=== PATIENT | male | born 1950 | race Caucasian/White ===

== ENCOUNTER 2018-11-29 00:02 | Inpatient (IN) | payer MEDICARE, BC ==
[~2018-11-29] VITALS: Ht 170.2 cm; Wt 111.4 kg
[2018-11-29] VITALS (16 sets, daily range): BP systolic 123–157; BP diastolic 58–76
--- NOTE | 2018-11-29 00:05 | NUR ---
[place] [address]99 [place] 500ml - per flight crew it was running at 1000 units per hour - we don't have this concentration in our drug library so rate was checked by myself and Caroline Dunham RN and pump set to 20ml/hr
[2018-11-29] MEDS ORDERED: ASPI-1265 PO (00:44)
[2018-11-29] MEDS ORDERED: OMEG-82 PO (00:51)
[2018-11-29] MEDS ORDERED: ATOR40TA PO (00:51)
[2018-11-29] MEDS ORDERED: VITA1CAP PO (00:51)
[2018-11-29] MEDS ORDERED: VALS1TAB77 PO (00:51)
[2018-11-29] MEDS ORDERED: heparin 10,000 units/1 ML INJ IV ONE ×2 (01:00→01:15)
--- NOTE | 2018-11-29 01:23 | NUR ---
CALLED DR. FLANNERY 2ND TIME AT 01:24
[2018-11-29] MEDS: heparin 25,000 UNIT/250ml bag 250 ML IV SCH ×4 (01:26→23:06)
--- NOTE | 2018-11-29 01:47 | NUR ---
3RD ATET TO CALL DR. FLANNERY AT 01:47
[2018-11-29 01:58] LABS: BASOPHILS # (AUTO) 0.1 X10'3 (0-0.2); BASOPHILS % (AUTO) 1.2 % (0-1); EOSINOPHILS # (AUTO) 0.2 X10'3 (0-0.9); EOSINOPHILS % (AUTO) 2.8 % (0-6); HEMATOCRIT 41.4 % (42.0-52.0); HEMOGLOBIN 14.1 g/dl (14.0-17.9); LYMPHOCYTES # (AUTO) 2.5 X10'3 (1.1-4.8); LYMPHOCYTES % (AUTO) 33.2 % (21-51); MEAN CORPUSCULAR HGB CONC 34.1 g/dL (33.0-36.5); MEAN CORPUSCULAR VOLUME 93.7 FL (78-98); MEAN PLATELET VOLUME 9.4 FL (7.4-10.4); MONOCYTES % (AUTO) 13.1 % (2-12); NEUTROPHILS # (AUTO) 3.7 X10'3 (1.8-7.7); NEUTROPHILS % (AUTO) 49.7 % (42-75); PLATELET COUNT 165 X10'3 (140-440); RED BLOOD COUNT 4.42 X10'6 (4.70-6.10); RED CELL DISTRIBUTION WIDTH 13.1 % (11.5-14.5); WHITE BLOOD COUNT 7.5 X10'3 (4.5-11.0)
[2018-11-29] MEDS ORDERED: heparin 25,000 UNIT/250ml bag 250 ML IV SCH (02:08)
[2018-11-29 02:10] LABS: PARTIAL THROMBOPLASTIN TIME 36 SECONDS (22-32); PROTHROMBIN TIME 10.3 SECONDS (9.0-12.0)
[2018-11-29] MEDS ORDERED: HYDROcodone/acetaminophen 10/325mg tab PO PRN ×2 (02:10→15:35)
[2018-11-29] MEDS ORDERED: potassium Cl 40MEQ/NS 500ml 500 ML IV PRN ×2 (02:10)
[2018-11-29] MEDS ORDERED: mag hydrox/Alum hydrox/simeth 30ml oral suspension PO PRN (02:10)
[2018-11-29] MEDS ORDERED: ondansetron/PF 4mg/2ml inj IV PRN (02:10)
[2018-11-29] MEDS ORDERED: acetaminophen 325mg tablet PO PRN ×3 (02:10→15:35)
[2018-11-29] MEDS ORDERED: HYDROcodone/acetaminophen 5mg/325mg tablet PO PRN (02:10)
[2018-11-29] MEDS ORDERED: heparin 10,000 units/1 ML INJ IV PRN (02:10)
[2018-11-29] MEDS ORDERED: magnesium hydroxide 30ml (MOM) UD suspension PO PRN (02:10)
[2018-11-29] MEDS ORDERED: potassium Cl 20 mEq SR tablet PO PRN ×2 (02:10)
[2018-11-29 02:17] LABS: ALANINE AMINOTRANSFERASE 33 U/L (12-78); ALBUMIN 3.3 G/DL (3.4-5.0); ALBUMIN/GLOBULIN RATIO 0.9 (1.1-1.5); ALKALINE PHOSPHATASE 54 IU/L (46-116); ANION GAP 10 (8-16); ASPARTATE AMINO TRANSFERASE 27 U/L (10-37); BILIRUBIN,TOTAL 0.3 MG/DL (0.1-1.0); BLOOD UREA NITROGEN 24 MG/DL (7-18); BUN/CREATININE RATIO 21.1 (5.4-32.0); CALCIUM 9.2 MG/DL (8.5-10.1); CHLORIDE 107 MMOL/L (99-107); CREATININE 1.14 MG/DL (0.60-1.10); POTASSIUM 3.9 MMOL/L (3.5-5.1); SODIUM 140 MMOL/L (135-145); TOTAL CARBON DIOXIDE 22.8 MMOL/L (24-32); TOTAL PROTEIN 6.8 G/DL (6.4-8.2); eGFR 64 ML/MIN
[2018-11-29 02:18] LABS: GLUCOSE 138 MG/DL (70-104)
--- NOTE | 2018-11-29 02:24 | NUR ---
pt ambulatory to restroom and back to bed. pt remains pain free without complaint. will continue to monitor. MD Ma, hospitalist aware of troponin
[2018-11-29] MEDS: normal saline 1000ml 1,000 ML IV SCH ×3 (02:26→17:30)
--- NOTE | 2018-11-29 06:35 | NUR ---
Patient in room PCU 3021A. I have received report from MILDRED GUERRA/SCOTT and had the opportunity to ask questions and assume patient care.
[2018-11-29 06:59] LABS: CHOL/HDL RATIO 4.4 (0.00-4.99); CHOLESTEROL 161 MG/DL (0-200); HDL CHOLESTEROL 37 MG/DL (35-60); LDL CHOLESTEROL 80 MG/DL (50-100); TRIGLYCERIDES 428 MG/DL (20-135)
[2018-11-29] MEDS: HYDROchlorothiazide 25mg tablet PO SCH (07:53)
[2018-11-29] MEDS: aspirin 81mg tablet.DR PO SCH (07:53)
[2018-11-29] MEDS: losartan 50mg tablet PO SCH (07:54)
[2018-11-29] MEDS: K and/or MAG REPLACEMENT MC SCH (07:57)
[2018-11-29] MEDS ORDERED: non-formulary drug (Valsartan/Hydrochlorothiazide (Valsartan-Hctz 160-25 Mg Tab) 1 TAB) PO SCH (08:00)
[2018-11-29] MEDS ORDERED: atorvastatin 20mg tablet PO SCH (08:00)
--- NOTE | 2018-11-29 09:12 | NUR ---
Took call from Lab for critical troponin 2.60, made Eleonora LEVY "O" to Mckenzie LEVY aware of result at this time.
--- NOTE | 2018-11-29 09:19 | NUR ---
PAGER ID: [phone] MESSAGE: [id number] pt. Lolita MERCADO Tropnin level 3.66- 3.22- and now is 2.60, thank you Eleonora [phone]
[2018-11-29] MEDS: heparin 10,000 units/1 ML INJ IV PRN ×2 (12:17→21:10)
[2018-11-29] MEDS ORDERED: fentaNYL/PF 50MCG/1 ML 2ML syringe ONE (13:35)
[2018-11-29] MEDS ORDERED: LIDOcaine 1% (10mg/ml)w/preservative injection 20ml MDV ONE (13:35)
[2018-11-29] MEDS ORDERED: iohexol 350MG/ML 100ml bottle IV ONE (13:35)
[2018-11-29] MEDS ORDERED: midazolam 2 mg/2 ml injection ONE ×2 (13:35→14:03)
[2018-11-29] MEDS ORDERED: iohexol 350 MG/ML 50ML vial IV ONE (13:35)
--- NOTE | 2018-11-29 14:00 | NUR ---
[place] documentation: I have reviewed and agree with interventions, assessments performed and documented by MILDRED Crews. [place] Medication Administration: For this medication-pass time frame, medication were reviewed, dispensed, administered and documented per hospital policy by MILDRED Crews.
[2018-11-29] MEDS ORDERED: diphenhydrAMINE 50 mg/ml inj ONE (14:03)
[2018-11-29] MEDS ORDERED: LORazepam 1 MG tablet PO PRN (15:05)
[2018-11-29] MEDS ORDERED: haloperidol 5mg tablet PO PRN (15:05)
[2018-11-29] MEDS ORDERED: haloperidol lactate 5mg/ml inj IM PRN (15:05)
[2018-11-29] MEDS ORDERED: LORazepam 2 mg/ml vial IV PRN (15:05)
--- NOTE | 2018-11-29 15:24 | NUR ---
Ultrasound, Vascular, and RT paged for preop cabg orders
[2018-11-29] MEDS ORDERED: nitroGLYCERIN 0.4mg SUBLingual tab SL PRN (15:30)
[2018-11-29] MEDS ORDERED: aspirin 81mg tab.chew PO ONE (15:30)
[2018-11-29] MEDS ORDERED: proCHLORperazine 10 MG/2 ml inj IV PRN (15:35)
--- NOTE | 2018-11-29 16:41 | NUR ---
Rt reports that they are unable to get PFT because they do not know how to calibrate the machine
[2018-11-29 17:10] LABS: ABG BASE EXCESS -2.3 mmol/L (-2.0-3.0); ABG HCO3 21.2 mmol/L (22.0-26.0); ABG PCO2 (T) 33.2 mmHg (35.0-48.0); ABG PH (T) 7.424 (7.350-7.450); ABG PO2 (T) 82.9 mmHg (83-108); FCOHb 0.3 % (0.5-1.5); FMetHb 0.2 % (0.3-1.12); FO2Hb 95.5 % (94-100); TOTAL HEMOGLOBIN 14.5 G/dl (14.0-18.0)
--- NOTE | 2018-11-29 18:20 | NUR ---
Patient in room CICU 2006. I have received report from Charles LEVY and had the opportunity to ask questions and assume patient care. Patient resting in bed eating dinner with daughter's help. BP in 150s systolically via femoral sheath, HR in low 60s in sinus rhythm. Will continue to monitor patient.
[2018-11-29] MEDS: docusate sod 100mg capsule PO SCH (19:45)
[2018-11-29] MEDS: metoprolol tartrate 25mg tablet PO SCH (19:45)
[2018-11-29] MEDS: HYDROcodone/acetaminophen 10/325mg tab PO PRN (19:45)
[2018-11-29] MEDS: OXAZEpam 15mg capsule PO PRN (19:45)
--- NOTE | 2018-11-29 19:55 | NUR ---
FC inserted, patient reporting leakage around catheter. Noted urine on sheets underneath him. Checked meatus, FC not leaking anymore. Sheets cleaned, armando area cleaned. Will continue to monitor.
[2018-11-29] MEDS: magnesium hydroxide 30ml (MOM) UD suspension PO SCH (20:47)
[2018-11-29] MEDS ORDERED: temazepam 15mg capsule PO PRN (21:00)
[2018-11-30] VITALS (24 sets, daily range): BP systolic 124–156; BP diastolic 57–79
--- NOTE | 2018-11-30 | NUR ---
No changes in patient condition. Will continue to monitor.
[2018-11-30] MEDS: normal saline 1000ml 1,000 ML IV SCH (01:08)
--- NOTE | 2018-11-30 04:00 | NUR ---
No changes in patient condition. Patient requesting pain medication for back pain. Will administer per MD orders.
[2018-11-30 04:06] LABS: BASOPHILS # (AUTO) 0.1 X10'3 (0-0.2); BASOPHILS % (AUTO) 0.7 % (0-1); EOSINOPHILS # (AUTO) 0.2 X10'3 (0-0.9); HEMOGLOBIN 13.5 g/dl (14.0-17.9); LYMPHOCYTES # (AUTO) 2.2 X10'3 (1.1-4.8); LYMPHOCYTES % (AUTO) 27.5 % (21-51); MEAN CORPUSCULAR HEMOGLOBIN 31.8 PG (27.0-31.0); MEAN CORPUSCULAR HGB CONC 33.7 g/dL (33.0-36.5); MEAN CORPUSCULAR VOLUME 94.3 FL (78-98); MEAN PLATELET VOLUME 10.1 FL (7.4-10.4); NEUTROPHILS # (AUTO) 4.5 X10'3 (1.8-7.7); NEUTROPHILS % (AUTO) 56.8 % (42-75); PLATELET COUNT 146 X10'3 (140-440); RED BLOOD COUNT 4.25 X10'6 (4.70-6.10); RED CELL DISTRIBUTION WIDTH 13.2 % (11.5-14.5); WHITE BLOOD COUNT 7.9 X10'3 (4.5-11.0)
[2018-11-30 04:17] LABS: ALANINE AMINOTRANSFERASE 28 U/L (12-78); ALBUMIN 3.1 G/DL (3.4-5.0); ALBUMIN/GLOBULIN RATIO 0.9 (1.1-1.5); ALKALINE PHOSPHATASE 48 IU/L (46-116); AMYLASE 34 U/L (25-115); ANION GAP 10 (8-16); ASPARTATE AMINO TRANSFERASE 19 U/L (10-37); BILIRUBIN,TOTAL 0.4 MG/DL (0.1-1.0); BLOOD UREA NITROGEN 14 MG/DL (7-18); BUN/CREATININE RATIO 15.4 (5.4-32.0); CALCIUM 8.5 MG/DL (8.5-10.1); CHLORIDE 105 MMOL/L (99-107); CREATININE 0.91 MG/DL (0.60-1.10); GLUCOSE 120 MG/DL (70-104); LIPASE 140 U/L (73-393); MAGNESIUM 1.9 MG/DL (1.5-2.4); PHOSPHORUS 4.1 MG/DL (2.3-4.5); POTASSIUM 3.6 MMOL/L (3.5-5.1); SODIUM 138 MMOL/L (135-145); TOTAL CARBON DIOXIDE 22.6 MMOL/L (24-32); TOTAL PROTEIN 6.6 G/DL (6.4-8.2); eGFR 83 ML/MIN
[2018-11-30] MEDS: HYDROcodone/acetaminophen 10/325mg tab PO PRN ×3 (04:36→14:34)
--- NOTE | 2018-11-30 06:23 | NUR ---
Problems reprioritized. Patient report given, questions answered & plan of care reviewed with Nayeli LEVY.
--- NOTE | 2018-11-30 06:26 | NUR ---
Patient in room CICU 2006. I have received report from Anselmo and had the opportunity to ask questions and assume patient care.
[2018-11-30] MEDS: K and/or MAG REPLACEMENT MC SCH (06:27)
[2018-11-30] MEDS: metoprolol tartrate 25mg tablet PO SCH (07:14)
[2018-11-30] MEDS: losartan 50mg tablet PO SCH (07:14)
[2018-11-30] MEDS: folic acid inj. 2 MG, thiamine inj. 100 MG, MVI, adult No.4 with vit. K 10 ML in dextro... IV SCH ×4 (07:14)
[2018-11-30] MEDS: HYDROchlorothiazide 25mg tablet PO SCH (07:14)
[2018-11-30] MEDS: docusate sod 100mg capsule PO SCH ×2 (07:14→19:47)
[2018-11-30] MEDS: aspirin 81mg tablet.DR PO SCH (07:15)
[2018-11-30 07:56] LABS: HEMOGLOBIN A1C 6.4 % (4.5-6.2)
[2018-11-30] MEDS ORDERED: atorvastatin 20mg tablet PO SCH (08:00)
[2018-11-30] MEDS: OXAZEpam 15mg capsule PO PRN ×2 (09:06→16:32)
[2018-11-30] MEDS ORDERED: ringers solution, lacted 1,000 ML IV ONE (09:16)
[2018-11-30 11:12] LABS: PROTHROMBIN TIME 10.2 SECONDS (9.0-12.0)
[2018-11-30] MEDS: heparin 10,000 units/1 ML INJ IV PRN ×2 (11:24→17:09)
[2018-11-30] MEDS: heparin 25,000 UNIT/250ml bag 250 ML IV SCH ×3 (11:26→17:11)
[2018-11-30] MEDS ORDERED: insulin regular, human 100 UNIT in normal saline 100ml IV soln 100 ML IV SCH ×2 (11:47)
[2018-11-30] MEDS ORDERED: insulin glargine (Lantus) pen - multi-dose SQ PRN (11:50)
[2018-11-30] MEDS ORDERED: gabapentin 400mg capsule PO ONE (11:50)
[2018-11-30] MEDS ORDERED: dextrose 50%-water 50ml dispensing syringe IV PRN (11:50)
[2018-11-30] MEDS ORDERED: cefazolin/dext.iso 2gm/50ml 50 ML IV ONE (11:50)
[2018-11-30] MEDS ORDERED: vancomycin/NS 1 GM ADD-VANTAGE 250 ML IV ONE (11:50)
[2018-11-30] MEDS ORDERED: NUT.TX.IMPAIRED DIGEST FXN (Ensure Clear) 237 ML PO ONE (11:50)
[2018-11-30] MEDS ORDERED: MESSAGE TO NURSING PO ONE ×4 (11:50)
[2018-11-30] MEDS ORDERED: ceFAZolin 2gm in dextrose, iso 100 ML IV ONE (11:55)
--- NOTE | 2018-11-30 12:30 | NUR ---
Ensure clear received from dietary, placed at bedside for tomorrow pre CABG.
--- NOTE | 2018-11-30 13:52 | NUR ---
Spoke to RT Lara who stated ABG's were done yesterday and do not need to be repeated.
[2018-11-30 14:01] LABS: CLARITY,URINE CLEAR (Clear); COLOR,URINE YELLOW (Yellow); GLUCOSE, URINE NEGATIVE (Neg); KETONES,URINE NEGATIVE (Neg); LEUKOCYTE ESTERASE ,URINE NEGATIVE (Neg); NITRITES, URINE NEGATIVE (Neg); OCCULT BLOOD,URINE LARGE (Neg); PROTEIN,URINE NEGATIVE (Neg); UROBILINOGEN,URINE 0.2 E.U/dL (0.2-1.0)
[2018-11-30 14:06] LABS: UA COLLECTION TYPE FOLEY CATH
[2018-11-30 14:08] LABS: BACTERIA,URINE NONE SEEN /HPF (Neg); MUCUS STRANDS NONE SEEN /LPF (Neg); SQUAMOUS EPITHELIAL CELL,UR NONE SEEN /LPF (FEW); WBC,URINE NONE SEEN /HPF (0-4)
--- NOTE | 2018-11-30 14:14 | NUR ---
DM consult: A1C <7 and not appropriate for DM ed at this time. Pt receiving beer w/ meals per MD order. Addendum: 11/30/18 at [address] Amended: Links added.
--- NOTE | 2018-11-30 18:15 | NUR ---
Patient in room CICU 2006. I have received report from MILDRED Patel and had the opportunity to ask questions and assume patient care with preceptor Aileen Silveira RN. Patient is awake and alert at time of report, patients daughter is at bedside. Patient with 18 ga PIV to left AC with heparin infusing at 1700 u/hr and Normal saline at 75 ml/hr. 18 ga PIV to right AC saline locked at this time. Patient educated on needing to keep his right leg straight. Patient with arterial sheath in place to right groin. No hematoma or bruising noted to site. Patient needs reminders to keep his leg straight. Right foot cool to touch, good capillary refill. Warm blanket placed on right foot. Will continue to monitor.
--- NOTE | 2018-11-30 18:19 | NUR ---
Problems reprioritized. Patient report given, questions answered & plan of care reviewed with Ronit.
[2018-11-30] MEDS: cyclobenzaprine 10mg tablet PO PRN (19:47)
[2018-11-30] MEDS ORDERED: mupirocin 2% nasal ointment 1gm UD NS SCH (20:00)
[2018-11-30] MEDS ORDERED: metoprolol tartrate 12.5mg (1/2 tablet) PO SCH (20:00)
--- NOTE | 2018-11-30 21:30 | NUR ---
Patient educated on Pre and Post op procedures, what to expect when he comes out of surgery. Heart pillow given to patient and shown how to use it. Discussed deep breathing and cough with patient and incentive spirometer. 1 st bed bath and linen change complete. Patient reminded to not move his right leg or attempt to help us while turning him, frequent reminders necessary.
[2018-11-30] MEDS: magnesium hydroxide 30ml (MOM) UD suspension PO SCH (21:55)
[2018-12-01] VITALS (24 sets, daily range): BP systolic 85–143; BP diastolic 35–73
--- NOTE | 2018-12-01 00:04 | NUR ---
Patient appears to be sleeping at this time.
[2018-12-01 03:28] LABS: BASOPHILS % (AUTO) 0.5 % (0-1); EOSINOPHILS # (AUTO) 0.3 X10'3 (0-0.9); HEMOGLOBIN 13.6 g/dl (14.0-17.9); LYMPHOCYTES # (AUTO) 2.2 X10'3 (1.1-4.8); LYMPHOCYTES % (AUTO) 26.8 % (21-51); MEAN CORPUSCULAR HEMOGLOBIN 31.9 PG (27.0-31.0); MEAN CORPUSCULAR HGB CONC 34.1 g/dL (33.0-36.5); MEAN CORPUSCULAR VOLUME 93.4 FL (78-98); MEAN PLATELET VOLUME 9.7 FL (7.4-10.4); MONOCYTES % (AUTO) 12.7 % (2-12); NEUTROPHILS # (AUTO) 4.7 X10'3 (1.8-7.7); PLATELET COUNT 148 X10'3 (140-440); PROTHROMBIN TIME 10.3 SECONDS (9.0-12.0); RED BLOOD COUNT 4.28 X10'6 (4.70-6.10); RED CELL DISTRIBUTION WIDTH 13.2 % (11.5-14.5); WHITE BLOOD COUNT 8.3 X10'3 (4.5-11.0)
[2018-12-01 03:30] LABS: ALANINE AMINOTRANSFERASE 28 U/L (12-78); ALBUMIN 3.1 G/DL (3.4-5.0); ALBUMIN/GLOBULIN RATIO 0.9 (1.1-1.5); ALKALINE PHOSPHATASE 51 IU/L (46-116); AMYLASE 33 U/L (25-115); ANION GAP 11 (8-16); ASPARTATE AMINO TRANSFERASE 18 U/L (10-37); BILIRUBIN,TOTAL 0.4 MG/DL (0.1-1.0); BLOOD UREA NITROGEN 10 MG/DL (7-18); BUN/CREATININE RATIO 10.8 (5.4-32.0); CALCIUM 8.4 MG/DL (8.5-10.1); CHLORIDE 104 MMOL/L (99-107); CREATININE 0.93 MG/DL (0.60-1.10); GLUCOSE 112 MG/DL (70-104); LIPASE 91 U/L (73-393); PHOSPHORUS 4.1 MG/DL (2.3-4.5); POTASSIUM 3.7 MMOL/L (3.5-5.1); SODIUM 139 MMOL/L (135-145); TOTAL CARBON DIOXIDE 24.2 MMOL/L (24-32); TOTAL PROTEIN 6.6 G/DL (6.4-8.2); eGFR 81 ML/MIN
[2018-12-01] MEDS ORDERED: gabapentin 400mg capsule PO ONE (05:00)
[2018-12-01] MEDS ORDERED: ceFAZolin 1000mg inj ONE (05:14)
[2018-12-01] MEDS ORDERED: ROPIVAcaine 0.5% (5mg/ml) 30ml vial ONE (05:14)
[2018-12-01] MEDS: mupirocin 2% nasal ointment 1gm UD NS SCH ×4 (05:26→20:01)
[2018-12-01] MEDS ORDERED: vancomycin/NS 1 GM ADD-VANTAGE 250 ML IV ONE (05:30)
[2018-12-01] MEDS ORDERED: ceFAZolin 2gm in dextrose, iso 100 ML IV ONE (05:30)
[2018-12-01] MEDS ORDERED: insulin regular, human 100 UNIT in normal saline 100ml IV soln 100 ML IV SCH ×2 (05:30)
[2018-12-01] MEDS ORDERED: NUT.TX.IMPAIRED DIGEST FXN (Ensure Clear) 237 ML PO ONE (05:30)
[2018-12-01] MEDS ORDERED: LORazepam 2 mg/ml vial IV ONE (06:00)
[2018-12-01] MEDS ORDERED: famotidine 20mg tablet PO ONE (06:00)
--- NOTE | 2018-12-01 06:22 | NUR ---
Problems reprioritized. Patient report given, questions answered & plan of care reviewed with MILDRED Waller.
[2018-12-01] MEDS ORDERED: aminocaproic acid 250 MG/1 ML inj. ONE ×2 (06:55)
[2018-12-01] MEDS ORDERED: calcium chloride 100 MG/1 ML inj IV ONE (06:55)
[2018-12-01] MEDS ORDERED: sodium bicarbonate (8.4%) 1 mEq/ml syringe ONE (06:55)
[2018-12-01] MEDS ORDERED: papaverine 30 mg/ml 2ml inj. ONE (06:55)
[2018-12-01] MEDS ORDERED: DOPamine/D5W 400mg/250ml bag IV ONE (06:55)
[2018-12-01] MEDS ORDERED: protamine sulf. 10mg/ml inj. IV ONE (06:55)
[2018-12-01] MEDS ORDERED: albumin (human) 25% 100 ML IV solution IV ONE (06:55)
[2018-12-01] MEDS ORDERED: LIDOcaine 2% (20 mg/ml) 5ml cardiac syringe ONE (06:55)
[2018-12-01] MEDS ORDERED: phenylephrine 10mg/ml inj. ONE ×2 (06:55→08:26)
[2018-12-01] MEDS ORDERED: heparin 1,000 units/ml 10ml inj ONE (06:55)
[2018-12-01] MEDS ORDERED: heparin 10,000 units/1 ML INJ ONE (06:55)
[2018-12-01] MEDS ORDERED: sevoflurane 250ml liquid IH ONE (06:55)
[2018-12-01] MEDS ORDERED: SUFENTANIL CITRATE 50 MCG/ML 2ml ampule IV ONE (06:59)
[2018-12-01] MEDS ORDERED: MIDAZolam 1mg/ml 10ml vial ONE (06:59)
[2018-12-01] MEDS ORDERED: LIDOcaine 2% (20mg/ml) 5ml vial ONE (07:00)
[2018-12-01] MEDS ORDERED: propofol inj 20 ML IV ONE (07:00)
[2018-12-01] MEDS ORDERED: pancuronium br 1mg/ml inj IV ONE (07:00)
[2018-12-01 07:45] LABS: ABG BASE EXCESS -1.1 mmol/L (-2.0-3.0); ABG HCO3 24.5 mmol/L (22.0-26.0); ABG OXYGEN SATURATION 99.5 % (95-98); ABG PCO2 44.2 mmHg (35.0-45.0); ABG PH 7.361 (7.350-7.450); ABG PO2 291.3 mmHg (60.0-100.0); CL (ABG) 103 mmol/L (99-107); FCOHb 0.7 % (0.5-1.5); FMetHb 0.4 % (0.3-1.12); FO2Hb 98.4 % (94-100); GLUCOSE (ABG) 195 mg/dl (70-105); IONIZED CA (ABG) 1.12 mmol/L (1.03-1.32); K (ABG) 3.7 mmol/L (3.3-5.1); NA (ABG) 131 mmol/L (135-145); TOTAL HEMOGLOBIN 13.7 G/dl (14.0-18.0)
[2018-12-01] MEDS ORDERED: heparin 10,000 units/1 ML INJ IR ONE (07:59)
[2018-12-01] MEDS: docusate sod 100mg capsule PO SCH ×2 (08:00→19:54)
[2018-12-01] MEDS: HYDROchlorothiazide 25mg tablet PO SCH (08:00)
[2018-12-01] MEDS: K and/or MAG REPLACEMENT MC SCH (08:00)
[2018-12-01] MEDS: metoprolol tartrate 12.5mg (1/2 tablet) PO SCH ×2 (08:00→19:55)
[2018-12-01] MEDS: losartan 50mg tablet PO SCH (08:00)
[2018-12-01] MEDS ORDERED: papaverine 30 mg/ml 2ml inj. IA ONE (08:02)
[2018-12-01 08:20] LABS: ABG BASE EXCESS VENOUS -4.5 mmol/L; ABG HCO3 VENOUS 22.8 mmol/L; ABG PCO2 VENOUS 51.2 mmHg; ABG PO2 VENOUS 50.5 mmHg; CL (ABG) 101 mmol/L (99-107); FHHb VENOUS 20.9 %; FMetHb VENOUS 0.4 %; FO2Hb VENOUS 77.7 %; GLUCOSE (ABG) 149 mg/dl (70-105); IONIZED CA (ABG) 1.15 mmol/L (1.03-1.32); K (ABG) 3.9 mmol/L (3.3-5.1); NA (ABG) 131 mmol/L (135-145)
[2018-12-01 08:55] LABS: ABG BASE EXCESS 0.3 mmol/L (-2.0-3.0); ABG HCO3 25.6 mmol/L (22.0-26.0); ABG OXYGEN SATURATION 99.3 % (95-98); ABG PCO2 44.6 mmHg (35.0-45.0); ABG PH 7.377 (7.350-7.450); ABG PO2 220.2 mmHg (60.0-100.0); CL (ABG) 100 mmol/L (99-107); FCOHb 0.4 % (0.5-1.5); FMetHb 0.2 % (0.3-1.12); FO2Hb 98.7 % (94-100); GLUCOSE (ABG) 122 mg/dl (70-105); IONIZED CA (ABG) 0.94 mmol/L (1.03-1.32); K (ABG) 3.8 mmol/L (3.3-5.1); NA (ABG) 129 mmol/L (135-145); TOTAL HEMOGLOBIN 10.1 G/dl (14.0-18.0)
[2018-12-01 09:20] LABS: ABG BASE EXCESS -0.2 mmol/L (-2.0-3.0); ABG HCO3 26.5 mmol/L (22.0-26.0); ABG OXYGEN SATURATION 98.2 % (95-98); ABG PCO2 52.2 mmHg (35.0-45.0); ABG PH 7.323 (7.350-7.450); ABG PO2 133.3 mmHg (60.0-100.0); CL (ABG) 103 mmol/L (99-107); FCOHb 0.4 % (0.5-1.5); FMetHb 0.6 % (0.3-1.12); FO2Hb 97.2 % (94-100); GLUCOSE (ABG) 125 mg/dl (70-105); IONIZED CA (ABG) 1.03 mmol/L (1.03-1.32); K (ABG) 4.2 mmol/L (3.3-5.1); NA (ABG) 130 mmol/L (135-145); TOTAL HEMOGLOBIN 11.6 G/dl (14.0-18.0)
[2018-12-01 09:40] LABS: ABG BASE EXCESS -0.6 mmol/L (-2.0-3.0); ABG HCO3 25.7 mmol/L (22.0-26.0); ABG OXYGEN SATURATION 99.3 % (95-98); ABG PCO2 49.1 mmHg (35.0-45.0); ABG PH 7.336 (7.350-7.450); ABG PO2 368.7 mmHg (60.0-100.0); CL (ABG) 102 mmol/L (99-107); FCOHb 0.4 % (0.5-1.5); FMetHb 0.7 % (0.3-1.12); FO2Hb 98.2 % (94-100); GLUCOSE (ABG) 124 mg/dl (70-105); IONIZED CA (ABG) 1.03 mmol/L (1.03-1.32); NA (ABG) 130 mmol/L (135-145); TOTAL HEMOGLOBIN 11.7 G/dl (14.0-18.0)
[2018-12-01 10:00] LABS: ABG BASE EXCESS 0.3 mmol/L (-2.0-3.0); ABG HCO3 25.9 mmol/L (22.0-26.0); ABG OXYGEN SATURATION 99.3 % (95-98); ABG PCO2 46.1 mmHg (35.0-45.0); ABG PH 7.368 (7.350-7.450); ABG PO2 391.1 mmHg (60.0-100.0); CL (ABG) 103 mmol/L (99-107); FCOHb 0.3 % (0.5-1.5); FMetHb 0.6 % (0.3-1.12); FO2Hb 98.4 % (94-100); GLUCOSE (ABG) 122 mg/dl (70-105); IONIZED CA (ABG) 0.99 mmol/L (1.03-1.32); NA (ABG) 131 mmol/L (135-145)
[2018-12-01] MEDS ORDERED: MESSAGE TO NURSING PO ONE (10:00)
[2018-12-01] MEDS: sodium chloride 0.45% 1,000 ML IV SCH (10:36)
[2018-12-01] MEDS ORDERED: nitroGLYCERIN-Tridil 50MG/D5W 250 ML IV PRN (10:36)
[2018-12-01] MEDS ORDERED: niCARDipine-NS 40mg/200ml IVPB 200 ML IV PRN (10:36)
[2018-12-01] MEDS ORDERED: nitroGLYCERIN-Tridil 50MG/D5W 250 ML IV SCH (10:36)
[2018-12-01] MEDS ORDERED: Neutra Phos packet PO PRN (10:40)
[2018-12-01] MEDS ORDERED: ondansetron/PF 4mg/2ml inj IV PRN (10:40)
[2018-12-01] MEDS ORDERED: sodium phosphate inj. 15 MMOL in dextrose 5%-water 150 ML IV PRN (10:40)
[2018-12-01] MEDS ORDERED: dextrose 50%-water 50ml dispensing syringe IV PRN (10:40)
[2018-12-01] MEDS ORDERED: magnesium 2GM in 50ml NS 50 ML IV PRN (10:40)
[2018-12-01] MEDS ORDERED: magnesium 4gm in 100ml NS 100 ML IV PRN (10:40)
[2018-12-01] MEDS ORDERED: insulin regular, human inj. 100 UNITS in normal saline 100ml IV soln 100 ML IV SCH ×2 (10:40)
[2018-12-01] MEDS ORDERED: sodium phosphate inj. 30 MMOL in dextrose 5%-water 250 ML IV PRN (10:40)
[2018-12-01] MEDS ORDERED: acetaminophen 325mg tablet PO PRN (10:40)
[2018-12-01] MEDS ORDERED: HYDROcodone/acetaminophen 10/325mg tab PO PRN (10:40)
[2018-12-01] MEDS ORDERED: morphine 4 MG/ML inj SYRINge IV PRN (10:40)
[2018-12-01] MEDS ORDERED: pantoprazole 40 MG vial IV ONE (10:40)
[2018-12-01] MEDS ORDERED: magnesium hydroxide 30ml (MOM) UD suspension PO PRN (10:40)
[2018-12-01] MEDS ORDERED: metoclopramide 5 mg/ml inj IV PRN (10:40)
[2018-12-01] MEDS ORDERED: potassium Cl 20 mEq SR tablet PO PRN (10:40)
[2018-12-01 10:41] LABS: ABG BASE EXCESS VENOUS -0.8 mmol/L; ABG HCO3 VENOUS 24.2 mmol/L; ABG PCO2 VENOUS 41.1 mmHg; ABG PO2 VENOUS 41.4 mmHg; CL (ABG) 106 mmol/L (99-107); FCOHb VENOUS 0.8 %; FHHb VENOUS 22.9 %; FMetHb VENOUS 0.6 %; FO2Hb VENOUS 75.7 %; GLUCOSE (ABG) 109 mg/dl (70-105); IONIZED CA (ABG) 1.02 mmol/L (1.03-1.32); K (ABG) 3.7 mmol/L (3.3-5.1); NA (ABG) 133 mmol/L (135-145); TOTAL HEMOGLOBIN 12.5 G/dl (14.0-18.0)
[2018-12-01 10:51] LABS: ACT @ 1.70 U 289 SEC (193-297); ACT @ 2.84 U 394 SEC (260-420); BASELINE ACT 149 SEC (101-148)
[2018-12-01 10:51] LABS: ACTIVATED CLOTTING TIME 131 SEC (101-148)
[2018-12-01] MEDS ORDERED: albumin (Human) 5% 250ml 250 ML IV ONE ×2 (10:55)
[2018-12-01 11:30] LABS: ABG BASE EXCESS -2.6 mmol/L (-2.0-3.0); ABG HCO3 22.2 mmol/L (22.0-26.0); ABG OXYGEN SATURATION 93.7 % (95-98); ABG PCO2 (T) 37.5 mmHg (35.0-48.0); ABG PH (T) 7.388 (7.350-7.450); ABG PO2 (T) 71.5 mmHg (83-108); FCOHb 0.3 % (0.5-1.5); FMetHb 0.2 % (0.3-1.12); FO2Hb 93.2 % (94-100); MINUTE VOLUME 9 L/min; PATIENT TEMPERATURE 36.2; PEEP 5 cm H2O; RESPIRATORY RATE 14 b/min; RESPIRATORY RATE (OBSERVED) 14 b/min; TIDAL VOLUME 600 mL; TOTAL HEMOGLOBIN 11.5 G/dl (14.0-18.0)
[2018-12-01] MEDS: albumin (Human) 5% 250ml 250 ML IV PRN ×4 (11:36→22:30)
[2018-12-01 11:40] LABS: INR 1.2 INR; PARTIAL THROMBOPLASTIN TIME 33 SECONDS (22-32); PROTHROMBIN TIME 11.9 SECONDS (9.0-12.0)
[2018-12-01 11:43] LABS: ALANINE AMINOTRANSFERASE 22 U/L (12-78); ALBUMIN 2.8 G/DL (3.4-5.0); ALBUMIN/GLOBULIN RATIO 1.3 (1.1-1.5); ALKALINE PHOSPHATASE 34 IU/L (46-116); ANION GAP 7 (8-16); ASPARTATE AMINO TRANSFERASE 25 U/L (10-37); BILIRUBIN,TOTAL 0.4 MG/DL (0.1-1.0); BLOOD UREA NITROGEN 9 MG/DL (7-18); BUN/CREATININE RATIO 8.9 (5.4-32.0); CALCIUM 7.3 MG/DL (8.5-10.1); CHLORIDE 107 MMOL/L (99-107); CREATININE 1.01 MG/DL (0.60-1.10); GLUCOSE 133 MG/DL (70-104); MAGNESIUM 1.9 MG/DL (1.5-2.4); PHOSPHORUS 3.7 MG/DL (2.3-4.5); POTASSIUM 3.8 MMOL/L (3.5-5.1); SODIUM 140 MMOL/L (135-145); TOTAL CARBON DIOXIDE 25.8 MMOL/L (24-32); eGFR 73 ML/MIN
[2018-12-01] MEDS: morphine 4 MG/ML inj SYRINge IV PRN ×2 (12:10→13:12)
[2018-12-01 12:14] LABS: BASOPHILS # (AUTO) 0.1 X10'3 (0-0.2); BASOPHILS % (AUTO) 0.6 % (0-1); EOSINOPHILS # (AUTO) 0.2 X10'3 (0-0.9); EOSINOPHILS % (AUTO) 1.4 % (0-6); HEMATOCRIT 34.8 % (42.0-52.0); HEMOGLOBIN 11.5 g/dl (14.0-17.9); LYMPHOCYTES # (AUTO) 2.1 X10'3 (1.1-4.8); LYMPHOCYTES % (AUTO) 18.1 % (21-51); MEAN CORPUSCULAR HEMOGLOBIN 31.7 PG (27.0-31.0); MEAN CORPUSCULAR VOLUME 95.9 FL (78-98); MEAN PLATELET VOLUME 9.6 FL (7.4-10.4); MONOCYTES # (AUTO) 1.1 X10'3 (0-0.9); MONOCYTES % (AUTO) 9.7 % (2-12); NEUTROPHILS # (AUTO) 8.3 X10'3 (1.8-7.7); NEUTROPHILS % (AUTO) 70.2 % (42-75); PLATELET COUNT 94 X10'3 (140-440); RED BLOOD COUNT 3.63 X10'6 (4.70-6.10); RED CELL DISTRIBUTION WIDTH 13.3 % (11.5-14.5); WHITE BLOOD COUNT 11.8 X10'3 (4.5-11.0)
[2018-12-01] MEDS ORDERED: NORepinephrine 8mg/ 250ml NS 250 ML IV ONE (12:29)
[2018-12-01] MEDS: gabapentin 300mg capsule PO SCH ×2 (12:31→21:16)
[2018-12-01] MEDS: potassium Cl 20mEq/100mL bag 100 ML IV PRN ×4 (12:31→22:25)
[2018-12-01] MEDS ORDERED: dexmedetomidin/NS 400mcg/100ml 100 ML IV PRN (12:45)
[2018-12-01] MEDS ORDERED: propofol 1000mg/100ml bottle 100 ML IV ONE (12:49)
[2018-12-01] MEDS: insulin Lispro (HumaLOG) vial - multi-dose SQ SCH ×2 (13:00→18:00)
--- NOTE | 2018-12-01 13:30 | NUR ---
DR SULLIVAN UPDATED X2 PT AGITATED REQUIRING MULTIPLE RNS TO HOLD DOWN, STARTED DIPRIVAN WHILE WAITING FOR PRECEDEX, UPDATED WITH CT OUTPUT, PROLONGED CAP REFILL, INTERMITTENTLY LOW SVR. OK TO START LEVO WITH GOOD CI AND LOW BP WITH LOW SVR.
[2018-12-01] MEDS: normal saline 1000ml 1,000 ML IV SCH (14:08)
[2018-12-01] MEDS: ceFAZolin 2gm in dextrose, iso 100 ML IV SCH ×2 (16:19→23:34)
[2018-12-01 17:32] LABS: BASOPHILS % (AUTO) 0.4 % (0-1); EOSINOPHILS % (AUTO) 0.3 % (0-6); HEMATOCRIT 27.8 % (42.0-52.0); HEMOGLOBIN 9.4 g/dl (14.0-17.9); LYMPHOCYTES # (AUTO) 0.9 X10'3 (1.1-4.8); LYMPHOCYTES % (AUTO) 10.2 % (21-51); MEAN CORPUSCULAR HEMOGLOBIN 32.5 PG (27.0-31.0); MEAN CORPUSCULAR HGB CONC 33.8 g/dL (33.0-36.5); MEAN CORPUSCULAR VOLUME 96.2 FL (78-98); MEAN PLATELET VOLUME 9.6 FL (7.4-10.4); MONOCYTES # (AUTO) 0.9 X10'3 (0-0.9); MONOCYTES % (AUTO) 10.4 % (2-12); NEUTROPHILS # (AUTO) 6.8 X10'3 (1.8-7.7); NEUTROPHILS % (AUTO) 78.7 % (42-75); PLATELET COUNT 88 X10'3 (140-440); RED BLOOD COUNT 2.89 X10'6 (4.70-6.10); RED CELL DISTRIBUTION WIDTH 13.5 % (11.5-14.5); WHITE BLOOD COUNT 8.6 X10'3 (4.5-11.0)
[2018-12-01 17:44] LABS: ANION GAP 9 (8-16); BLOOD UREA NITROGEN 10 MG/DL (7-18); BUN/CREATININE RATIO 11.9 (5.4-32.0); CALCIUM 6.7 MG/DL (8.5-10.1); CHLORIDE 110 MMOL/L (99-107); CREATININE 0.84 MG/DL (0.60-1.10); GLUCOSE 124 MG/DL (70-104); MAGNESIUM 2.6 MG/DL (1.5-2.4); PHOSPHORUS 2.7 MG/DL (2.3-4.5); POTASSIUM 4.1 MMOL/L (3.5-5.1); SODIUM 143 MMOL/L (135-145); TOTAL CARBON DIOXIDE 23.6 MMOL/L (24-32); eGFR > 90 ML/MIN
[2018-12-01 18:06] LABS: ABG BASE EXCESS -2.6 mmol/L (-2.0-3.0); ABG HCO3 22.4 mmol/L (22.0-26.0); ABG PCO2 (T) 40.9 mmHg (35.0-48.0); ABG PH (T) 7.359 (7.350-7.450); ABG PO2 (T) 84.2 mmHg (83-108); FCOHb 0.3 % (0.5-1.5); FO2Hb 94.7 % (94-100); MINUTE VOLUME 10 L/min; PATIENT TEMPERATURE 37.8; PEEP 5 cm H2O; RESPIRATORY RATE (OBSERVED) 16 b/min; TOTAL HEMOGLOBIN 10.9 G/dl (14.0-18.0)
--- NOTE | 2018-12-01 18:08 | NUR ---
JEFF KIRBY UPDATED WITH 6 HOURS LABS, REQUESTED REPEAT ABG CALLED WITH RESULTS, OK TO GIVE MORE ALBUMIN IF NEEDED
--- NOTE | 2018-12-01 18:20 | NUR ---
Problems reprioritized. Patient report given, questions answered & plan of care reviewed with MILDRED Santamaria.
--- NOTE | 2018-12-01 18:30 | NUR ---
Patient in room ICU 2040. I have received report from Christin LEVY and had the opportunity to ask questions and assume patient care.
[2018-12-01] MEDS: folic acid inj. 2 MG, thiamine inj. 100 MG, MVI, adult No.4 with vit. K 10 ML in dextro... IV SCH ×4 (19:53)
[2018-12-01] MEDS ORDERED: docusate sod 100mg capsule PO SCH (20:00)
[2018-12-01] MEDS: vancomycin/NS 1 GM ADD-VANTAGE 250 ML IV SCH (20:01)
[2018-12-01] MEDS: magnesium hydroxide 30ml (MOM) UD suspension PO SCH (20:04)
[2018-12-01] MEDS: HYDROcodone/acetaminophen 10/325mg tab PO PRN (21:17)
[2018-12-01 23:41] LABS: ABG HCO3 21.5 mmol/L (22.0-26.0); ABG OXYGEN SATURATION 97.4 % (95-98); ABG PCO2 (T) 36.2 mmHg (35.0-48.0); ABG PH (T) 7.392 (7.350-7.450); ABG PO2 (T) 107.8 mmHg (83-108); FCOHb 0.3 % (0.5-1.5); FO2Hb 97.1 % (94-100); MINUTE VOLUME 12 L/min; PATIENT TEMPERATURE 37.1; PEEP 5 cm H2O; RESPIRATORY RATE 0 b/min; RESPIRATORY RATE (OBSERVED) 21 b/min; TIDAL VOLUME 507 mL; TOTAL HEMOGLOBIN 10.7 G/dl (14.0-18.0)
[2018-12-02] VITALS (24 sets, daily range): BP systolic 97–148; BP diastolic 52–79
[2018-12-02] MEDS: HYDROcodone/acetaminophen 10/325mg tab PO PRN ×5 (01:56→19:05)
[2018-12-02] MEDS: normal saline 1000ml 1,000 ML IV SCH ×2 (03:28→16:48)
[2018-12-02] MEDS: heparin 25,000 UNIT/250ml bag 250 ML IV SCH (03:59)
[2018-12-02 04:16] LABS: BASOPHILS % (AUTO) 0.3 % (0-1); EOSINOPHILS # (AUTO) 0.1 X10'3 (0-0.9); EOSINOPHILS % (AUTO) 0.9 % (0-6); HEMATOCRIT 28.9 % (42.0-52.0); HEMOGLOBIN 9.8 g/dl (14.0-17.9); LYMPHOCYTES # (AUTO) 1.9 X10'3 (1.1-4.8); LYMPHOCYTES % (AUTO) 18.6 % (21-51); MEAN CORPUSCULAR HEMOGLOBIN 32.4 PG (27.0-31.0); MEAN CORPUSCULAR HGB CONC 33.9 g/dL (33.0-36.5); MEAN CORPUSCULAR VOLUME 95.8 FL (78-98); MEAN PLATELET VOLUME 10.2 FL (7.4-10.4); MONOCYTES # (AUTO) 1.7 X10'3 (0-0.9); MONOCYTES % (AUTO) 16.2 % (2-12); NEUTROPHILS # (AUTO) 6.6 X10'3 (1.8-7.7); PLATELET COUNT 87 X10'3 (140-440); RED BLOOD COUNT 3.02 X10'6 (4.70-6.10); RED CELL DISTRIBUTION WIDTH 13.3 % (11.5-14.5); WHITE BLOOD COUNT 10.4 X10'3 (4.5-11.0)
--- NOTE | 2018-12-02 04:19 | NUR ---
Precedex off and Pt extubated shortly before midnight. 10L mask, to 5L reduced to 3L NC at 0400. Levophed off at 0300. Pt is pleasant, talkative and cooperative. Following sternal precautions.
[2018-12-02 04:25] LABS: INR 1.1 INR; PARTIAL THROMBOPLASTIN TIME 33 SECONDS (22-32)
[2018-12-02 04:28] LABS: ALANINE AMINOTRANSFERASE 23 U/L (12-78); ALBUMIN 3.2 G/DL (3.4-5.0); ALBUMIN/GLOBULIN RATIO 1.5 (1.1-1.5); ALKALINE PHOSPHATASE 29 IU/L (46-116); AMYLASE 25 U/L (25-115); ANION GAP 8 (8-16); ASPARTATE AMINO TRANSFERASE 32 U/L (10-37); BILIRUBIN,TOTAL 0.5 MG/DL (0.1-1.0); BLOOD UREA NITROGEN 9 MG/DL (7-18); BUN/CREATININE RATIO 10.2 (5.4-32.0); CALCIUM 7.1 MG/DL (8.5-10.1); CHLORIDE 108 MMOL/L (99-107); CREATININE 0.88 MG/DL (0.60-1.10); GLUCOSE 110 MG/DL (70-104); LIPASE 65 U/L (73-393); MAGNESIUM 2.6 MG/DL (1.5-2.4); PHOSPHORUS 2.8 MG/DL (2.3-4.5); POTASSIUM 4.2 MMOL/L (3.5-5.1); SODIUM 140 MMOL/L (135-145); TOTAL CARBON DIOXIDE 24.2 MMOL/L (24-32); TOTAL PROTEIN 5.3 G/DL (6.4-8.2); eGFR 86 ML/MIN
[2018-12-02] MEDS: potassium Cl 20mEq/100mL bag 100 ML IV PRN ×2 (04:55→05:52)
--- NOTE | 2018-12-02 06:31 | NUR ---
Pt was repositioned this morning and he pain became
--- NOTE | 2018-12-02 06:32 | NUR ---
Pt's pain increased this a morning with repositioning, 2Mg morphine ineffective, 2 norcos given, helped to reposition to try to aleviate pain some, instructed to not hold his breath, using good sternal precautions. Nitro gtt restarted at 10mcg for elevated BP. Problems reprioritized. Patient report given, questions answered & plan of care reviewed with Castro LEVY.
[2018-12-02] MEDS ORDERED: ketorolac trometh. 30mg/ml inj. IV ONE (07:15)
[2018-12-02] MEDS: metoprolol tartrate 12.5mg (1/2 tablet) PO SCH ×2 (07:42→19:53)
[2018-12-02] MEDS: K and/or MAG REPLACEMENT MC SCH (08:00)
[2018-12-02] MEDS ORDERED: metoprolol tartrate 12.5mg (1/2 tablet) PO SCH (08:00)
[2018-12-02] MEDS: atorvastatin 10mg tablet PO SCH (08:34)
[2018-12-02] MEDS: HYDROchlorothiazide 25mg tablet PO SCH (08:34)
[2018-12-02] MEDS: losartan 50mg tablet PO SCH (08:34)
[2018-12-02] MEDS: docusate sod 100mg capsule PO SCH ×2 (08:34→19:51)
[2018-12-02] MEDS: aspirin 325mg tablet, delayed-release (Ecotrin) PO SCH (08:34)
[2018-12-02] MEDS: gabapentin 300mg capsule PO SCH ×3 (08:34→21:26)
[2018-12-02] MEDS: ceFAZolin 2gm in dextrose, iso 100 ML IV SCH ×3 (08:38→23:44)
[2018-12-02] MEDS: vancomycin/NS 1 GM ADD-VANTAGE 250 ML IV SCH ×2 (08:40→19:51)
[2018-12-02] MEDS: mupirocin 2% nasal ointment 1gm UD NS SCH ×2 (08:40→19:51)
[2018-12-02] MEDS: insulin Lispro (HumaLOG) vial - multi-dose SQ SCH ×3 (09:00→17:09)
[2018-12-02] MEDS: multivitamins, therapeutics tablet PO SCH (13:46)
[2018-12-02] MEDS: thiamine 100mg tablet PO SCH (13:46)
[2018-12-02] MEDS: folic acid 1mg tablet PO SCH (13:47)
[2018-12-02] MEDS: albuterol 2.5 MG/3 ML nebule NEB PRN ×2 (16:07→20:41)
--- NOTE | 2018-12-02 18:32 | NUR ---
Patient doing well POD #1; up in the chair since physical therapy. Also walked with staffing rn about 250 feet without difficulty. Some shortness of breath, but o2 saturation and vital signs stable. PA and ART line removed per hospital policy, pt tolerated well. Pt refusing Beer with breakfast and lunch, but took one with dinner. Bladder temperature slowly increasing to 38.1 from 37.9; room thermostat cooled. Pt doing well with incentive spirometer and flutter valve; self motivated with use. Pt report given to Krista LEVY; all questions answered.
--- NOTE | 2018-12-02 18:38 | NUR ---
Patient in room ICU 2040. I have received report from Castro LEVY, and had the opportunity to ask questions and assume patient care.
--- NOTE | 2018-12-02 19:30 | NUR ---
PT sitting up in chair eating dinner with no s/s of distress noted at this time. VSS. PT receiving 3L o2 to NC, tolerating well, O2 sat >94%. CT in place, serosanguineous drainage noted in tubing. Almeida in place and draining to gravity. Bed is made and ready for when PT is ready to lay down. Bed is locked and low. Call light is within reach. Will continue to monitor.
[2018-12-02] MEDS: lactobacillus rhamnosus 10,000 MMU CELLS/CAPSULE PO SCH (19:51)
[2018-12-02] MEDS: magnesium hydroxide 30ml (MOM) UD suspension PO SCH (21:25)
--- NOTE | 2018-12-02 23:00 | NUR ---
PT is resting in bed with no s/s of distress noted at this time, PT watching baseball game on TV. VSS. PT is having good U/O. Bed is locked and low. Call light is with in reach. Will continue to monitor.
[2018-12-03] VITALS (21 sets, daily range): BP systolic 107–154; BP diastolic 54–76
[2018-12-03] MEDS: HYDROcodone/acetaminophen 10/325mg tab PO PRN ×5 (00:14→22:42)
[2018-12-03] MEDS: albuterol 2.5 MG/3 ML nebule NEB PRN (00:53)
--- NOTE | 2018-12-03 02:30 | NUR ---
PT resting with no s/s of distress noted at this time. VSS. Bed is locked and low. Call light is within reach. Will continue to monitor.
[2018-12-03 02:46] LABS: BASOPHILS % (AUTO) 0.3 % (0-1); EOSINOPHILS # (AUTO) 0.2 X10'3 (0-0.9); EOSINOPHILS % (AUTO) 1.8 % (0-6); HEMATOCRIT 27.4 % (42.0-52.0); HEMOGLOBIN 9.4 g/dl (14.0-17.9); LYMPHOCYTES # (AUTO) 1.2 X10'3 (1.1-4.8); LYMPHOCYTES % (AUTO) 11.6 % (21-51); MEAN CORPUSCULAR HEMOGLOBIN 32.8 PG (27.0-31.0); MEAN CORPUSCULAR HGB CONC 34.4 g/dL (33.0-36.5); MEAN CORPUSCULAR VOLUME 95.3 FL (78-98); MEAN PLATELET VOLUME 9.9 FL (7.4-10.4); MONOCYTES # (AUTO) 1.3 X10'3 (0-0.9); MONOCYTES % (AUTO) 11.9 % (2-12); NEUTROPHILS # (AUTO) 7.9 X10'3 (1.8-7.7); NEUTROPHILS % (AUTO) 74.4 % (42-75); PLATELET COUNT 84 X10'3 (140-440); RED BLOOD COUNT 2.87 X10'6 (4.70-6.10); RED CELL DISTRIBUTION WIDTH 13.3 % (11.5-14.5); WHITE BLOOD COUNT 10.6 X10'3 (4.5-11.0)
[2018-12-03 02:59] LABS: ALANINE AMINOTRANSFERASE 134 U/L (12-78); ALBUMIN 3.2 G/DL (3.4-5.0); ALBUMIN/GLOBULIN RATIO 1.1 (1.1-1.5); ALKALINE PHOSPHATASE 45 IU/L (46-116); AMYLASE 25 U/L (25-115); ANION GAP 8 (8-16); ASPARTATE AMINO TRANSFERASE 175 U/L (10-37); BILIRUBIN,TOTAL 0.5 MG/DL (0.1-1.0); BLOOD UREA NITROGEN 11 MG/DL (7-18); CALCIUM 7.7 MG/DL (8.5-10.1); CHLORIDE 102 MMOL/L (99-107); GLUCOSE 167 MG/DL (70-104); LIPASE 86 U/L (73-393); MAGNESIUM 2.2 MG/DL (1.5-2.4); PHOSPHORUS 2.1 MG/DL (2.3-4.5); POTASSIUM 3.9 MMOL/L (3.5-5.1); SODIUM 135 MMOL/L (135-145); TOTAL CARBON DIOXIDE 25.4 MMOL/L (24-32); eGFR 74 ML/MIN
[2018-12-03 03:01] LABS: PROTHROMBIN TIME 10.6 SECONDS (9.0-12.0)
[2018-12-03] MEDS: normal saline 1000ml 1,000 ML IV SCH (06:08)
--- NOTE | 2018-12-03 06:52 | NUR ---
Problems reprioritized. Patient report given, questions answered & plan of care reviewed with Aparna LEVY.
--- NOTE | 2018-12-03 06:52 | NUR ---
Patient in room ICU 2040. I have received report from MILDRED Velasco and had the opportunity to ask questions and assume patient care.
[2018-12-03] MEDS ORDERED: potassium Cl 20 mEq SR tablet PO STA (07:14)
[2018-12-03] MEDS ORDERED: bisacodyl 10mg suppository rectal RC STA (07:14)
[2018-12-03] MEDS ORDERED: magnesium oxide 400mg tablet PO ONE (07:15)
[2018-12-03] MEDS: docusate sod 100mg capsule PO SCH ×2 (07:28→19:03)
[2018-12-03] MEDS: gabapentin 300mg capsule PO SCH (07:28)
[2018-12-03] MEDS: pantoprazole 40mg Tablet.DR PO SCH (07:28)
[2018-12-03] MEDS: metoprolol tartrate 12.5mg (1/2 tablet) PO SCH ×2 (07:29→21:29)
[2018-12-03] MEDS: folic acid 1mg tablet PO SCH (07:29)
[2018-12-03] MEDS: thiamine 100mg tablet PO SCH (07:29)
[2018-12-03] MEDS: atorvastatin 10mg tablet PO SCH (07:29)
[2018-12-03] MEDS: multivitamins, therapeutics tablet PO SCH (07:29)
[2018-12-03] MEDS ORDERED: magnesium 2GM in 50ml NS 50 ML IV PRN (07:30)
[2018-12-03] MEDS ORDERED: magnesium Cl slow-release 64mg tablet PO PRN (07:30)
[2018-12-03] MEDS ORDERED: potassium Cl 40MEQ/NS 500ml 500 ML IV PRN ×2 (07:30)
[2018-12-03] MEDS: losartan 50mg tablet PO SCH (07:30)
[2018-12-03] MEDS ORDERED: magnesium 4gm in 100ml NS 100 ML IV PRN (07:30)
[2018-12-03] MEDS: aspirin 325mg tablet, delayed-release (Ecotrin) PO SCH (07:30)
[2018-12-03] MEDS ORDERED: potassium Cl 20 mEq SR tablet PO PRN ×2 (07:30)
[2018-12-03] MEDS: lactobacillus rhamnosus 10,000 MMU CELLS/CAPSULE PO SCH ×2 (07:30→21:29)
[2018-12-03] MEDS: mupirocin 2% nasal ointment 1gm UD NS SCH (07:31)
[2018-12-03] MEDS: magnesium hydroxide 30ml (MOM) UD suspension PO SCH (07:31)
[2018-12-03] MEDS: furosemide 20 MG/2 ML vial IV SCH (07:37)
[2018-12-03] MEDS: guaiFENesin ER 600mg tablet PO SCH ×2 (07:38→21:28)
[2018-12-03] MEDS: K and/or MAG REPLACEMENT MC SCH ×2 (08:00)
[2018-12-03] MEDS: potassium Cl 20 mEq SR tablet PO SCH ×2 (08:00→21:29)
[2018-12-03] MEDS: magnesium Cl slow-release 64mg tablet PO SCH ×2 (08:00→19:03)
[2018-12-03] MEDS: insulin Lispro (HumaLOG) vial - multi-dose SQ SCH ×3 (09:00→18:00)
--- NOTE | 2018-12-03 10:13 | NUR ---
Patient in room ICU 2040. I have received report from MILDRED HARRISON IN ICU and had the opportunity to ask questions and assume patient care.
--- NOTE | 2018-12-03 10:30 | NUR ---
PATIENT ARRIVED TO ACCE UNIT BED 313 VIA WC IN STABLE CONDITION.
[2018-12-03] MEDS: sodium chloride 0.45% 1,000 ML IV SCH (10:36)
--- NOTE | 2018-12-03 14:36 | NUR ---
I HAVE HAD A CHANCE TO REVIEW THE PHYSICAL ASSESSMENT COMPLETED BY REED MAN THIS AM. UPON PT ARRIVAL TO ACCE UNIT NO CHANGES IN PATIENT CONDITION. AUDIBLE WHEEZES HEARD WHEN PATIENT AMBULATES AND RESOLVES AT REST. IS EDUCATED PROVIDED AND PATIENT DEMONSTRATED RETURN DEMO. WILL CONTINUE TO MONITOR
--- NOTE | 2018-12-03 17:36 | NUR ---
Initial: Pt admit with NSTEMI now s/p CABG x 4. Pt seen at bedside with daughter present given written and verbal nutrition and wound healing after cardiac surgery education. Pt endorses a good appetite which is evident with documented PO intake 100% on CHO controlled diet. Pt agreeable to double protein TID to provide additional protein for wound healing, d/w dietary. Pt denies any food allergies or difficulty chewing/swallowing. Pt previously without a BM since 11/28 however was given bowel care and had a BM 12/03 per pt. Pt with no additional questions or concerns and declines need for chopped food at this time. Will continue to follow. Recommendations: 1) Continue with CHO controlled diet 2) Double protein TID 3) Continue Thiamine, Folic acid, and MVI given Etoh abuse 4) Wt per rx Addendum: 12/03/18 at [address] Amended: Links added. Addendum: 12/03/18 at [address] RD contact information provided
--- NOTE | 2018-12-03 18:21 | NUR ---
Problems reprioritized. Patient report given, questions answered & plan of care reviewed with sahra murray rn.
[2018-12-03] MEDS: enoxaparin 30mg/0.3ml syringe SUBCUT SCH (21:30)
--- NOTE | 2018-12-03 21:30 | NUR ---
Patient observed getting out of bed using both arms to push and pull himself up. Patient educated multiple times on the importance of sternal precautions and the risk of not following precautions. Patient verbalized understanding but when getting back into bed continued to use arms. Patient insists he is able to transfer self to and from the bathroom without help. Noted some bleeding from patient's leg vein harvest site. Educated the patient about not putting pressure on that site by trying to keep his leg straight while in bed. Dressing was applied to the site. Continuing to monitor.
[2018-12-04 02:00] VITALS: BP 117/65
--- NOTE | 2018-12-04 03:46 | NUR ---
Instructed him to call for help so we could properly disconnect the monitors and help him up and down out of bed so he could use proper sternal precautions when getting up. Pt did call for help but after disconnected from the monitors he pulled himself up off the bed and did not have his heart pillow in place. Provided continued education on need to comply with sternal precautions. Patient verbalized understanding but remains noncompliant at this time
--- NOTE | 2018-12-04 04:20 | NUR ---
Pt noncompliant with strict I&O monitoring after yao catheter d/c'd. Pt stated he did use the toilet x2 to void Addendum: 12/04/18 at 0421 by Caroline Pollock RN Amended: Links added.
[2018-12-04 05:51] LABS: BASOPHILS % (AUTO) 0.4 % (0-1); EOSINOPHILS # (AUTO) 0.4 X10'3 (0-0.9); EOSINOPHILS % (AUTO) 3.7 % (0-6); HEMOGLOBIN 9.2 g/dl (14.0-17.9); LYMPHOCYTES # (AUTO) 1.3 X10'3 (1.1-4.8); LYMPHOCYTES % (AUTO) 12.5 % (21-51); MEAN CORPUSCULAR HEMOGLOBIN 32.8 PG (27.0-31.0); MEAN CORPUSCULAR HGB CONC 34.3 g/dL (33.0-36.5); MEAN CORPUSCULAR VOLUME 95.7 FL (78-98); MEAN PLATELET VOLUME 9.4 FL (7.4-10.4); MONOCYTES # (AUTO) 1.6 X10'3 (0-0.9); MONOCYTES % (AUTO) 15.1 % (2-12); NEUTROPHILS # (AUTO) 7.2 X10'3 (1.8-7.7); NEUTROPHILS % (AUTO) 68.3 % (42-75); PLATELET COUNT 106 X10'3 (140-440); RED BLOOD COUNT 2.82 X10'6 (4.70-6.10); RED CELL DISTRIBUTION WIDTH 13.6 % (11.5-14.5); WHITE BLOOD COUNT 10.5 X10'3 (4.5-11.0)
[2018-12-04 06:00] VITALS: BP 118/62
[2018-12-04 06:12] LABS: ALANINE AMINOTRANSFERASE 106 U/L (12-78); ALBUMIN 2.9 G/DL (3.4-5.0); ALBUMIN/GLOBULIN RATIO 0.9 (1.1-1.5); ALKALINE PHOSPHATASE 50 IU/L (46-116); AMYLASE 25 U/L (25-115); ANION GAP 6 (8-16); ASPARTATE AMINO TRANSFERASE 69 U/L (10-37); BILIRUBIN,TOTAL 0.4 MG/DL (0.1-1.0); BLOOD UREA NITROGEN 15 MG/DL (7-18); BUN/CREATININE RATIO 17.2 (5.4-32.0); CHLORIDE 106 MMOL/L (99-107); CREATININE 0.87 MG/DL (0.60-1.10); GLUCOSE 130 MG/DL (70-104); LIPASE 106 U/L (73-393); MAGNESIUM 2.2 MG/DL (1.5-2.4); PHOSPHORUS 1.9 MG/DL (2.3-4.5); POTASSIUM 4.4 MMOL/L (3.5-5.1); SODIUM 137 MMOL/L (135-145); TOTAL CARBON DIOXIDE 25.4 MMOL/L (24-32); eGFR 87 ML/MIN
--- NOTE | 2018-12-04 06:44 | NUR ---
Problems reprioritized. Patient report given, questions answered & plan of care reviewed with Kristen LEVY.
[2018-12-04] MEDS: K and/or MAG REPLACEMENT MC SCH (08:00)
--- NOTE | 2018-12-04 08:00 | NUR ---
PATIENT NONCOMPLIANT WITH STERNAL PRECAUTIONS RN EXPLAINED RISKS OF DEHISCENCE AND COMPLICATIONS IF HE PULLS AND PUSHES WITH HIS ARMS TO TRANSFER HE IS DOING NOW. WILL CONTINUE TO MONITOR AND RE-EDUCATE.
[2018-12-04] MEDS: insulin Lispro (HumaLOG) vial - multi-dose SQ SCH (09:00)
[2018-12-04] MEDS ORDERED: magnesium 4gm in 100ml NS 100 ML IV PRN (09:32)
[2018-12-04] MEDS ORDERED: magnesium 2GM in 50ml NS 50 ML IV PRN (09:33)
[2018-12-04] MEDS: furosemide 20 MG/2 ML vial IV SCH (09:43)
[2018-12-04] MEDS: metoprolol tartrate 12.5mg (1/2 tablet) PO SCH ×2 (09:43→20:34)
[2018-12-04] MEDS: lactobacillus rhamnosus 10,000 MMU CELLS/CAPSULE PO SCH ×2 (09:43→20:34)
[2018-12-04] MEDS: potassium Cl 20 mEq SR tablet PO SCH ×2 (09:43→20:00)
[2018-12-04] MEDS: thiamine 100mg tablet PO SCH (09:44)
[2018-12-04] MEDS: folic acid 1mg tablet PO SCH (09:44)
[2018-12-04] MEDS: atorvastatin 10mg tablet PO SCH (09:44)
[2018-12-04] MEDS: pantoprazole 40mg Tablet.DR PO SCH (09:44)
[2018-12-04] MEDS: aspirin 325mg tablet, delayed-release (Ecotrin) PO SCH (09:44)
[2018-12-04] MEDS: docusate sod 100mg capsule PO SCH ×2 (09:44→20:34)
[2018-12-04] MEDS: multivitamins, therapeutics tablet PO SCH (09:45)
[2018-12-04] MEDS: magnesium Cl slow-release 64mg tablet PO SCH ×2 (09:45→20:00)
[2018-12-04] MEDS: guaiFENesin ER 600mg tablet PO SCH ×2 (09:45→20:34)
[2018-12-04] MEDS: HYDROcodone/acetaminophen 10/325mg tab PO PRN ×3 (09:46→19:13)
[2018-12-04] MEDS: enoxaparin 30mg/0.3ml syringe SUBCUT SCH ×2 (09:47→20:35)
--- NOTE | 2018-12-04 10:56 | NUR ---
Student documentation: I have reviewed and agree with all interventions, assessments performed and documented by DOUGLAS STUDENT NURSE.
[2018-12-04 11:00] VITALS: BP 109/52
[2018-12-04 15:00] VITALS: BP 146/76
[2018-12-04 18:00] VITALS: BP 112/74
--- NOTE | 2018-12-04 18:30 | NUR ---
Patient in room MED 313. I have received report from Kristen LEVY and had the opportunity to ask questions and assume patient care.
[2018-12-04] MEDS: magnesium hydroxide 30ml (MOM) UD suspension PO SCH (20:35)
[2018-12-04 22:00] VITALS: BP 136/59
[2018-12-05] MEDS: cyclobenzaprine 10mg tablet PO PRN (00:46)
[2018-12-05] MEDS: HYDROcodone/acetaminophen 10/325mg tab PO PRN ×2 (00:47→07:47)
[2018-12-05 02:00] VITALS: BP 101/57
--- NOTE | 2018-12-05 06:00 | NUR ---
I have received report from Caroline Peters RN and had the opportunity to ask questions and assume patient care.
[2018-12-05 06:01] LABS: POTASSIUM 3.8 MMOL/L (3.5-5.1)
[2018-12-05 07:00] VITALS: BP 109/59
[2018-12-05 07:44] VITALS: BP_SYST 109
[2018-12-05] MEDS: aspirin 325mg tablet, delayed-release (Ecotrin) PO SCH (07:44)
[2018-12-05] MEDS: furosemide 20 MG/2 ML vial IV SCH (07:44)
[2018-12-05] MEDS: lactobacillus rhamnosus 10,000 MMU CELLS/CAPSULE PO SCH (07:44)
[2018-12-05] MEDS: magnesium Cl slow-release 64mg tablet PO SCH (07:44)
[2018-12-05] MEDS: metoprolol tartrate 12.5mg (1/2 tablet) PO SCH (07:44)
[2018-12-05] MEDS: thiamine 100mg tablet PO SCH (07:44)
[2018-12-05] MEDS: enoxaparin 30mg/0.3ml syringe SUBCUT SCH (07:45)
[2018-12-05] MEDS: potassium Cl 20 mEq SR tablet PO SCH (07:45)
[2018-12-05] MEDS: pantoprazole 40mg Tablet.DR PO SCH (07:45)
[2018-12-05] MEDS: guaiFENesin ER 600mg tablet PO SCH (07:45)
[2018-12-05] MEDS: multivitamins, therapeutics tablet PO SCH (07:45)
[2018-12-05] MEDS: folic acid 1mg tablet PO SCH (07:45)
[2018-12-05] MEDS: atorvastatin 10mg tablet PO SCH (07:45)
[2018-12-05] MEDS: docusate sod 100mg capsule PO SCH (08:00)
[2018-12-05] MEDS: K and/or MAG REPLACEMENT MC SCH (08:00)
[2018-12-05 08:17] LABS: HEMATOCRIT 29.9 % (42.0-52.0); HEMOGLOBIN 9.9 g/dl (14.0-17.9); MEAN CORPUSCULAR HGB CONC 33.1 g/dL (33.0-36.5); MEAN CORPUSCULAR VOLUME 96.5 FL (78-98); MEAN PLATELET VOLUME 9.5 FL (7.4-10.4); PLATELET COUNT 145 X10'3 (140-440); RED CELL DISTRIBUTION WIDTH 13.5 % (11.5-14.5); WHITE BLOOD COUNT 8.2 X10'3 (4.5-11.0)
[2018-12-05] MEDS ORDERED: METO25TA6 PO (09:33)
[2018-12-05] MEDS ORDERED: HYDR-3972 PO (09:33)
[2018-12-05] MEDS ORDERED: HCTZ25T PO (09:35)
--- NOTE | 2018-12-05 11:04 | NUR ---
Discharge instructions given and all questions answered. PIV removed without complication.
== END 2018-12-05 11:00 | disposition home health service (06) | DRG 233 ==
LOC: ER 00:02 → PCU 3S 02:50 → CICU 2S 14:53 → ICU 2S 12-01 11:05 → MED 3N 12-03 10:30
PROVIDERS: ADMIT Hospitalist; ATTEND Thoracic Surgery (Cardiothoracic Vascular Surgery)
PROC: 4A023N7 Measurement of Cardiac Sampling and Pressure, Left Heart, Percutaneous Approach (ICD-10-PCS; 2018-11-29)
PROC: B2111ZZ Fluoroscopy of Multiple Coronary Arteries using Low Osmolar Contrast (ICD-10-PCS; 2018-11-29)
PROC: B2151ZZ Fluoroscopy of Left Heart using Low Osmolar Contrast (ICD-10-PCS; 2018-11-29)
PROC: B3111ZZ Fluoroscopy of Right Brachiocephalic-Subclavian Artery using Low Osmolar Contrast (ICD-10-PCS; 2018-11-29)
PROC: B31N1ZZ Fluoroscopy of Other Upper Arteries using Low Osmolar Contrast (ICD-10-PCS; 2018-11-29)
PROC: B41F1ZZ Fluoroscopy of Right Lower Extremity Arteries using Low Osmolar Contrast (ICD-10-PCS; 2018-11-29)
PROC: 021209W Bypass Coronary Artery, Three Arteries from Aorta with Autologous Venous Tissue, Open Approach (ICD-10-PCS; 2018-12-01)
PROC: 06BQ4ZZ Excision of Left Saphenous Vein, Percutaneous Endoscopic Approach (ICD-10-PCS; 2018-12-01)
PROC: B548ZZA Ultrasonography of Superior Vena Cava, Guidance (ICD-10-PCS; 2018-12-01)
PROC: 02HP32Z Insertion of Monitoring Device into Pulmonary Trunk, Percutaneous Approach (ICD-10-PCS; 2018-12-01)
PROC: 02HV33Z Insertion of Infusion Device into Superior Vena Cava, Percutaneous Approach (ICD-10-PCS; 2018-12-01)
PROC: 5A1221Z Performance of Cardiac Output, Continuous (ICD-10-PCS; 2018-12-01)
PROC: B24BZZ4 Ultrasonography of Heart with Aorta, Transesophageal (ICD-10-PCS; 2018-12-01)
PROC: 02100Z9 Bypass Coronary Artery, One Artery from Left Internal Mammary, Open Approach (ICD-10-PCS; principal; 2018-12-01 06:40)
DX: I21.4 Non-ST elevation (NSTEMI) myocardial infarction (principal); J96.00 Acute respiratory failure, unspecified whether with hypoxia or hypercapnia; I50.21 Acute systolic (congestive) heart failure; D62 Acute posthemorrhagic anemia; J44.9 Chronic obstructive pulmonary disease, unspecified; E78.00 Pure hypercholesterolemia, unspecified; E11.65 Type 2 diabetes mellitus with hyperglycemia; E78.1 Pure hyperglyceridemia; E78.5 Hyperlipidemia, unspecified; D69.6 Thrombocytopenia, unspecified; I11.0 Hypertensive heart disease with heart failure; F17.200 Nicotine dependence, unspecified, uncomplicated; E89.0 Postprocedural hypothyroidism; F10.20 Alcohol dependence, uncomplicated; E66.01 Morbid (severe) obesity due to excess calories; G89.29 Other chronic pain; M54.9 Dorsalgia, unspecified; I25.119 Atherosclerotic heart disease of native coronary artery with unspecified angina pectoris; K59.00 Constipation, unspecified; Z79.82 Long term (current) use of aspirin; Z79.899 Other long term (current) drug therapy; Z68.38 Body mass index [BMI] 38.0-38.9, adult
CPT/HCPCS: 36415; 36600; 71045; 80048; 80053; 80061; 81001; 82150; 82330; 82435; 82803; 82947; 82948; 83036; 83690; 83735; 83880; 84100; 84132; 84295; 84484; 85018; 85025; 85027; 85347; 85384; 85610; 85730; 86885; 86900; 86901; 86920; 87070; 93005; 93306; 93312; 93325; 93459; 93880; 93970; 94002; 94010; 94150; 94640; 94760; 96365; 97110; 97116; 97161; 97530; 99152; 99285; A6196; A6255; A6257; A6258; A6449; A7000; A7048; C1751; C1769; C9113; G0378; J0690; J1200; J1265; J1644; J1650; J1815; J1885; J1940; J2001; J2060; J2150; J2250; J2270; J2370; J2440; J2704; J2720; J2795; J3010; J3370; J3411; J3475; J3480; J3490; J7030; J7060; J7120; P9045; P9047; Q9967